=== PATIENT | female | born 1955 | race Caucasian/White ===

== ENCOUNTER 2021-07-31 19:51 | Emergency (ER) | payer OTHER ==
[~2021-07-31] VITALS: Ht 188 cm; Wt 108.9 kg
--- NOTE | 2021-07-31 19:57 | NUR ---
pt bib ra from home c/o n/v and elevated blood sugar. Dr. Anderson at bedside for MSE.
[2021-07-31] MEDS ORDERED: IV NORMAL SALINE 1000 ML BAG IV ONE (20:15)
[2021-07-31] MEDS ORDERED: PROCHLORPERAZINE EDISYLATE 10 MG/2 ML VIAL IV ONE ×2 (20:15→23:00)
[2021-07-31] MEDS ORDERED: HYDROMORPHONE 1 MG/1 ML DISP.SYRIN IV ONE (20:15)
[2021-07-31] MEDS ORDERED: PROCHLORPERAZINE EDISYLATE 10 MG/2 ML VIAL ONE ×2 (20:30→23:05)
[2021-07-31] MEDS ORDERED: IV NS 1000 ML 1,000 ML IV ONE ×2 (20:30→23:00)
[2021-07-31] MEDS ORDERED: HYDROMORPHONE 1 MG/1 ML DISP.SYRIN ONE (20:31)
[2021-07-31 20:41] LABS: HEMATOCRIT 50.8 % (31.2-41.9); MEAN CORPUSCULAR HEMOGLOBIN 30.6 uug (24.7-32.8); MEAN CORPUSCULAR VOLUME 90.3 fL (75.5-95.3); PLATELET COUNT (AUTO) 218 K/uL (179-408)
[2021-07-31 20:52] LABS: CARBON DIOXIDE 29 mmol/L (21-32); CHLORIDE 99 mmol/L (98-107); CREATININE 0.8 mg/dL (0.6-1.3); POTASSIUM 4.1 mmol/L (3.5-5.1); UREA NITROGEN, BLOOD 13 mg/dL (7-18)
[2021-07-31 20:56] LABS: GLUCOSE 372 mg/dL (74-106)
[2021-07-31 21:00] LABS: ALANINE AMINOTRANSFERASE 44 U/L (14-59); ALKALINE PHOSPHATASE 119 U/L (50-136); ASPARTATE AMINOTRANSFERASE 16 U/L (15-37); BILIRUBIN,DIRECT 0.2 mg/dL (0.0-0.2); BILIRUBIN,TOTAL 0.7 mg/dL (0.2-1.0); LIPASE 53 U/L (73-393); TOTAL PROTEIN, SERUM 7.7 g/dL (6.4-8.2)
--- NOTE | 2021-07-31 21:02 | NUR ---
pt placed on o2 2l nc saturation was dropping to 80 percent. pt was given dilaudid. aware.
[2021-07-31 22:59] LABS: *BLOOD, URINE 1+ (NEGATIVE); *CLARITY,URINE CLOUDY (CLEAR); *COLOR,URINE YELLOW (YELLOW); *KETONES,URINE 2+ (NEGATIVE); LEUKOCYTE ESTERASE ,URINE NEGATIVE (NEGATIVE); NITRITE, URINE NEGATIVE (NEGATIVE); PH,URINE 5.5 (5.0-8.0)
[2021-07-31 23:01] LABS: *BILIRUBIN,URIN 1+ (NEGATIVE); UGLUCOSE 2+ (NEGATIVE)
--- NOTE | 2021-07-31 23:28 | NUR ---
call to pt's gf at [phone] Mariaelena Hansen I left a message to call us back.
--- NOTE | 2021-07-31 23:50 | NUR ---
pt's gf has not called us back. this is regarding a ride home. as Dr. Anderson states pt will be discharged and does not require admission.
[2021-07-31] MEDS ORDERED: PROC10TA29 PO (23:53)
[2021-07-31] MEDS ORDERED: METF-440 PO (23:53)
--- NOTE | 2021-08-01 01:52 | NUR ---
pt's friend came to bring the pt's bag with belongings. She states her sister received calls from the hospital. I asked the friend if the sister acknowleges that the hospital called why cant the sister package pick up the pt. her response was "I dont know." At this time the pt's gf is not coming to get her friend despite the fact that she has received my messages and has failed to call me back or come to the hospital. The pt remains in room 4a at this time and is discharged status.
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
--- NOTE | 2021-08-01 07:26 | NUR ---
Patient had one BM.
--- NOTE | 2021-08-01 07:36 | NUR ---
Hot breakfast tray provided.
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
--- NOTE | 2021-08-01 07:47 | NUR ---
IV removed. Catheter intact and site benign. Pressure and 4x4 gauze applied to site. No bleeding noted. Diane-anal care done. New diaper on. Patient wants to borrow our hospital wheelchair. Snacks provided by [employer]. Security notified re: patient's "to home" discharge status. Patient was given written and verbal discharge instructions. Patient verbalized understanding and compliance of instructions. Patient is using our wheelchair while in the ER waiting room. Patient refuses offer of [facility]. Patient was given a list of available shelters in surrounding area. Nursing reservations sales supervisor notified about the social service needs of this patient.
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
[2021-08-01 10:15] LABS: BACTERIA,URINE MANY /HPF (NONE SEEN)
[2021-08-01 10:16] LABS: SQUAMOUS EPITHELIAL CELL,UR MODERATE /HPF (NONE SEEN)
[2021-08-01 10:18] LABS: MUCUS,URINE MANY /LPF (0-FEW)
[2021-08-01 10:20] LABS: FATTY CASTS,URINE 0-3 /LPF (NONE SEEN)
[2021-08-01 10:23] LABS: YEAST,URINE MANY /HPF (NONE SEEN)
== END 2021-08-01 07:52 | disposition home or self-care (01) ==
LOC: ER 20:51
DX: R11.2 Nausea with vomiting, unspecified (principal); E11.65 Type 2 diabetes mellitus with hyperglycemia; Z79.84 Long term (current) use of oral hypoglycemic drugs; R10.84 Generalized abdominal pain; R00.0 Tachycardia, unspecified; E86.0 Dehydration; Z89.512 Acquired absence of left leg below knee
CPT/HCPCS: 36415; 71045; 80048; 80076; 81001; 82009; 83690; 84484; 85025; 87086; 93005; 96361 ×2; 96374; 96375 ×2; 99285; J0780 ×2; J1170; J7040 ×3; A4663